=== PATIENT | female | born 1975 | race Caucasian/White ===

== ENCOUNTER → 2017-10-04 | Outpatient (CLI) | payer OTHER ==
[~2017-10-04] MED LIST: ALBU8.5H8 IH; BIMA2.5D EACHEYE; CYCL1DRO EACHEYE; DIPH25CA58 PO; FEXO180T81 PO; LEVO25TA4 PO; MONT5TAB6 PO; MULT1TAB97 PO; TETR15DR14 OP
[2017-10-04 10:08] LABS: ALBUMIN 3.6 g/dL (3.4-5.0); ALBUMIN/GLOBULIN RATIO 0.9 (1.0-1.7); CREATININE 0.9 mg/dL (0.6-1.0); POTASSIUM 4.7 mmol/L (3.5-5.1); TOTAL BILIRUBIN 0.5 mg/dL (0.2-1.0); TOTAL PROTEIN 7.4 g/dL (6.4-8.2)
[2017-10-04 15:02] LABS: FREE T4 1.15 ng/dL (0.76-1.46); THYROID STIM HORMONE (TSH) 0.042 uIU/mL (0.358-3.740)
[2017-10-05 01:10] LABS: HEMOGLOBIN A1C 4.8 % (4.8-5.6)
== END | disposition home or self-care (01) ==
LOC: LAB 09:00
PROVIDERS: ATTEND Internal Medicine Endocrinology, Diabetes & Metabolism
DX: E06.3 Autoimmune thyroiditis (principal); E22.1 Hyperprolactinemia; E66.9 Obesity, unspecified
CPT/HCPCS: 36415; 80053; 83036; 84146; 84439; 84443

== ENCOUNTER → 2017-12-16 | Outpatient (CLI) | payer OTHER ==
[2017-12-16 12:29] LABS: FREE T4 0.83 ng/dL (0.76-1.46); THYROID STIM HORMONE (TSH) 1.054 uIU/mL (0.358-3.740)
== END | disposition home or self-care (01) ==
LOC: LAB 08:47
PROVIDERS: ATTEND Internal Medicine Endocrinology, Diabetes & Metabolism
DX: E03.9 Hypothyroidism, unspecified (principal); E22.1 Hyperprolactinemia; E66.9 Obesity, unspecified; R94.7 Abnormal results of other endocrine function studies
CPT/HCPCS: 36415; 84146; 84439; 84443

== ENCOUNTER → 2018-04-20 | Outpatient (CLI) | payer OTHER ==
[2018-04-21 15:55] LABS: FREE T4 0.9 ng/dL (0.76-1.46); THYROID STIM HORMONE (TSH) 0.681 uIU/mL (0.358-3.740)
== END | disposition home or self-care (01) ==
LOC: LAB 12:20
PROVIDERS: ATTEND Internal Medicine Endocrinology, Diabetes & Metabolism
DX: E06.3 Autoimmune thyroiditis (principal); E22.1 Hyperprolactinemia
CPT/HCPCS: 36415; 84146; 84439; 84443

== ENCOUNTER → 2018-10-13 | Outpatient (CLI) | payer OTHER ==
[~2018-10-13] MED LIST changes: +ALBU2.5V8 IH; -ALBU8.5H8 IH
[2018-10-13 19:43] LABS: FREE T4 1.02 ng/dL (0.76-1.46); THYROID STIM HORMONE (TSH) 1.38 uIU/mL (0.358-3.740)
== END | disposition home or self-care (01) ==
LOC: LAB 10:05
PROVIDERS: ATTEND Internal Medicine Endocrinology, Diabetes & Metabolism
DX: E03.9 Hypothyroidism, unspecified (principal); E22.1 Hyperprolactinemia
CPT/HCPCS: 36415; 84146; 84439; 84443